=== PATIENT | female | born 1935 | race Caucasian/White ===

== ENCOUNTER 2017-06-29 13:40 | Emergency (ER) | payer MEDICARE ==
[~2017-06-29] VITALS: Ht 160 cm; Wt 59.1 kg
[2017-06-29 13:49] VITALS: BP 152/78; PULSE 70; RESP 16; O2SAT 98
[2017-06-29] MEDS ORDERED: HYDROmorphone 0.5 mg/0.5 mL iSecure Syringe IVPUSH PRN (14:30)
--- NOTE | 2017-06-29 14:32 | DRSVH ---
PROCEDURE: X-RAY LEFT WRIST COMPLETE, MINIMUM THREE VIEWS ([id number]) INDICATIONS: FALL TECHNIQUE: 3 views of the wrist were acquired. COMPARISON: None. FINDINGS: Bones: There is a comminuted radial metaphyseal fracture with impaction, mild dorsal angulation and i ntra-articular involvement. No suspicious bony lesions. Severe first carpometacarpal joint degenera tion. There is generalized osteopenia. Soft tissues: No suspicious soft tissue calcifications. IMPRESSION: Comminuted radial metaphyseal fracture with impaction, mild dorsal angulation and intra-a rticular involvement. Dictated by: Cassidy Ren M.D. on 06/29/2017 at 14:29 Approved by: Cassidy Ren M.D. on 06/29/2017 at 14:31
--- NOTE | 2017-06-29 14:33 | DRSVH ---
PROCEDURE: X-RAY RIGHT WRIST COMPLETE, MINIMUM THREE VIEWS ([id number]) INDICATIONS: FALL TECHNIQUE: 3 views of the wrist were acquired. COMPARISON: None. FINDINGS: Bones: There is comminuted fracture in the distal radial metaphysis with impaction, dorsal angulation and intra-articular involvement. Generalized osteopenia is noted. There is severe first carpometaca rpal joint degeneration. Soft tissues: No suspicious soft tissue calcifications. IMPRESSION: Impacted intra-articular fracture in the distal radial metaphysis. Dictated by: Cassidy Ren M.D. on 06/29/2017 at 14:31 Approved by: Cassidy Ren M.D. on 06/29/2017 at 14:32
--- NOTE | 2017-06-29 14:38 | ED.REPORT ---
HPI-Extremity Problem Upper Date of Service Jun 29, 2017 ED Provider: Bay Sellers MD Pt is an 82 year old female with a hx of HTN presenting to the ED after tripping and falling just prior to arrival and hurting both wrists. She complains of bilateral wrist pain and swelling. Pt hit her head but does not complain of any head pain. Denies dizziness, lightheadedness, headache, LOC, chest pain, knee pain, or other injury. She denies any cardiac history. Pt is visiting from [place] and will be returning home tomorrow. Nursing Notes Stated Complaint: GLF BOTH WRISTS SWOLLEN AND PAINFUL Chief Complaint: Extremity Trauma Nursing Notes Reviewed: Yes ([employer], [employer] not reconciled) Allergies: Coded Allergies: codeine (Verified Allergy, Mild, MAKES PT FEEL "WEIRD", 06/29/17) Scheduled PRN oxyCODONE (oxyCODONE) 5 Mg Tablet 2.5-5 MG PO Q4H PRN PRN For Pain General Time Seen by MD: 14:13 Chief Complaint Wrist injury right, Wrist injury left Hx Obtained From: Patient Arrived By: Wheelchair Onset Occurred: Just prior to arrival Symptom Duration: Since onset Location: : Wrist left: Wrist right Quality: Painful Severity: Current: Mild Severity: Maximum: Moderate Recent Healthcare: No recent doctor visit, No recent hospitalization Similar Sx Previous: No Past Medical History Past Medical History Reports: Hypertension Past Surgical History femur repair last year Smoking History Never Smoker Social History Alcohol Use: Denies alcohol use Drug Use: Denies drug use Ambulatory Status Independent Review of Systems Musculoskeletal: Reports: Extremity pain, Extremity swelling, Joint pain, Joint swelling Neurologic: Denies: Change LOC, Dizziness, Headache, Lightheaded Complete sys rev & neg: except as marked. Cardiovascular: Denies: Chest pain Physical Exam Initial Vital Signs Vital Signs (First) Date Time Temp Pulse Resp B/P Pulse Ox O2 Delivery O2 Flow Rate FiO2 06/29/17 13:49 36.0 70 16 152/78 98 06/29/17 17:14 Room Air Initial VS: Reviewed, Vital signs normal Head / Eyes: Atraumatic, Normocephalic, PERRL ENT: Mucous membranes moist, Conjunctiva normal, No scleral icterus Neck: Supple, Non-tender, Full range of motion Respiratory: No respiratory distress Cardiovascular: Intact distal pulses Abdomen / GI: No distention Lower Extremities: Vascular intact, Neuro intact, No swelling, No tenderness Skin: Warm, Dry, No cyanosis Neurologic: Alert, Oriented, Nonfocal Psychiatric: Mood/affect normal, Behavior normal, Normal thought content General/Constitutional: Awake, Alert, No acute distress No visible signs of trauma other than wrists Wrist / Hand: Neurologic intact, Vascular intact Swelling and tenderness with decreased ROM bilateral wrists. Superficial abrasion to the lateral 5th metacarpal. No signs of open wound. Interpretation & Diagnostics X-Ray Interpretation Xray Interpretation: IMPRESSION: Impacted intra-articular fracture in the distal radial metaphysis. Dictated by: Cassidy Ren M.D. on 06/29/2017 at 14:31 IMPRESSION: Comminuted radial metaphyseal fracture with impaction, mild dorsal angulation and intra-articular involvement. Dictated by: Cassidy Ren M.D. on 06/29/2017 at 14:29 X-Ray Ordered: Wrist right, Wrist left Interpretation / Wet Read by: Interpret - Radiologist Re-Eval/Medical Decision Med Decision/Clinical Course This is a pleasant 82-year-old female visiting from [place] he tripped mechanically fell on the outstretched arms and suffered bilateral wrist injuries. She grazed her head, but had no loss conscious, no headache, no abrasion or visible signs of head injury. Her only complaints is the bilateral wrist pain. She is not on anticoagulants. Exam she has swelling and discomfort of both wrists, but no open wounds site from her trace abrasion to the hand were evident. No hands are neurovascularly intact. No other signs of trauma are evident. The patient's awake alert and appropriate no visible signs of trauma to head. Plain radiographs of bilateral wrists demonstrate bilateral distal radius fractures. Minimally displaced, but not to the point of requiring emergent reduction, and appears fairly well controlled in the department she really wants to stick with Tylenol initially. Although she did finally accept half of a high oxycodone for pain control. I initially offered admission given the bilateral nature of her injuries, but the patient states she is from [place] of state, she and her friend would like to get her splinted, and she is getting on the plane and section driving down the [place] right now to fly back home, and plans to go and seek orthopedic care [place]. I think that is not unreasonable given she has assistance. I for short course of pain medicine help her get through this. Copies of her radiographs of been provided. Careful instructions such that the patient's worsening pain, she develops numbness or neurologic symptoms need to go directly to the nearest emergent department as warranted. The patient is discharged in stable condition. Source of Hx: Old records Re-Evaluation/Progress : Time of Eval: 14:47 Patient Status: Condition improved Re-Evaluation/Progress Note: Discussed plan for discharge. Pt understands and agrees with plan. Differential Diagnosis: Positive: Colles' fracture, Fracture, Negative: Abscess, Compartment syndrome, Deep vein thrombosis, Gamekeepers thumb, Humerus fracture, Joint effusion, Laceration, Neurovascular injury Counseled Regarding: Diagnosis, Lab results, Need for follow-up, When/why to return to ED Discharge & Departure Impression: Primary Impression: Wrist fracture, bilateral Encounter type: initial encounter Fracture type: closed Qualified Code: S62.101A - Fracture of unspecified carpal bone, right wrist, initial encounter for closed fracture Disposition: Home Discharge Condition All VS Reviewed: Yes Condition: Improved Patient Instructions: Splint Care (ED) Additional Instructions: 1. You have bilateral distal radius (wrist) fractures that will need orthopedic management. 2. It is reasonable to keep them splinted until you return home to [place] tomorrow and go directly to your provider (as discussed call your PCP, but if unable to get in, go directly to the ED). Bring copies of the radiographs with you. 3. Keep the wrists splinted. 4. Take Tylenol 500 mg 2 tabs up to 4 times a day as needed for pain. 5. If needed for more severe pain take oxycodone 5 mg one half tab up to 1 tab , take up to every 4-6 hours for more severe pain. Note: This medication is a narcotic and causes drowsiness, dizziness, and can cause constipation. Use only if needed. 6. If in the interim you develop worsening pain, if he developed new numbness or tingling, or if he have any difficulties initially managing care at home, return directly here to the emergency department. Shmuel Attestation Portions of this note were transcribed by Danielle Carpio. I, Dr. Sellers personally performed the history, physical exam and medical decision-making; I reviewed and confirmed the accuracy of the information in the transcribed note. Signed by: Shmuel Rhodes, 06/29/2017. Bay Sellers MD Jun 29, 2017 14:38 DANIELLE CARPIO Jun 29, 2017 14:45
[2017-06-29] MEDS ORDERED: OXYC-530 PO (15:29)
[2017-06-29 17:14] VITALS: PULSE 88; RESP 16; O2SAT 98
== END 2017-06-29 17:15 | disposition home or self-care (01) ==
LOC: SED 13:40
DX: S52.571A Other intraarticular fracture of lower end of right radius, initial encounter for closed fracture (principal); S52.572A Other intraarticular fracture of lower end of left radius, initial encounter for closed fracture; W01.198A Fall on same level from slipping, tripping and stumbling with subsequent striking against other object, initial encounter; Y93.9 Activity, unspecified; Y92.9 Unspecified place or not applicable; Y99.9 Unspecified external cause status; I10 Essential (primary) hypertension; Z88.5 Allergy status to narcotic agent